=== PATIENT | female | born 1990 | race Hispanic/Latino ===

== ENCOUNTER 2022-08-27 02:05 | Inpatient (IN) | payer SELFPAY ==
[~2022-08-27] VITALS: Ht 162.6 cm; Wt 91.6 kg
[2022-08-27] MEDS ORDERED: ONDANSETRON HCL INJ 2MG/ML 2ML 2 MG/ML VIAL IV STA (02:25)
[2022-08-27] MEDS ORDERED: SODIUM CHLORIDE 0.9% 1000ML 1,000 ML ONE (02:27)
[2022-08-27] MEDS ORDERED: ONDANSETRON HCL INJ 2MG/ML 2ML 2 MG/ML VIAL ONE (02:28)
[2022-08-27 02:29] LABS: BASOPHILS # (AUTO) 0.1 (0.0-0.1); BASOPHILS % 0.9 % (0.0-1.0); EOSINOPHILS # (AUTO) 0.2 (0.0-0.4); EOSINOPHILS % 2.4 % (0.0-6.0); HEMATOCRIT 40.3 % (34.2-44.1); HEMOGLOBIN 13.4 g/dL (12.0-16.0); LYMPHOCYTES % 24.4 % (18.0-39.1); MEAN CORPUSCULAR HEMOGLOBIN 29.3 pg (28-32); MEAN CORPUSCULAR HGB CONC 33.3 g/dL (31-35); MEAN CORPUSCULAR VOLUME 88.2 fL (81-99); MONOCYTES # (AUTO) 0.5 (0.2-0.8); MONOCYTES % 5.6 % (4.4-11.3); NEUTROPHILS # (AUTO) 5.3 (2.1-6.9); NEUTROPHILS % 66.6 % (38.7-80.0); PLATELET COUNT 283 x10e3/uL (140-360); RED BLOOD COUNT 4.57 x10e6/uL (3.6-5.1); RED CELL DISTRIBUTION WIDTH 14.8 % (11.7-14.4)
[2022-08-27] MEDS ORDERED: SODIUM CHLORIDE 0.9% 1000ML 1,000 ML IV ONE (02:30)
[2022-08-27] MEDS ORDERED: FAMOTIDINE 20 MG/2 ML VIAL IV STA (02:39)
[2022-08-27 02:44] LABS: CLARITY,URINE CLEAR (CLEAR); COLOR,URINE AMBER (YELLOW); KETONES,URINE TRACE (NEGATIVE); LEUKOCYTE ESTERASE ,URINE NEGATIVE (NEGATIVE); NITRITE,URINE NEGATIVE (NEGATIVE); PROTEIN,URINE DIPSTICK NEGATIVE (NEGATIVE)
[2022-08-27 02:48] LABS: ANION GAP 13.9 mmol/L (8-16); CALCIUM 9.4 mg/dL (8.4-10.2); CREATININE, SERUM 0.79 mg/dL (0.57-1.11); POTASSIUM 3.9 mmol/L (3.5-5.1)
[2022-08-27 02:49] LABS: WBC,URINE (MAN) 0-5 /HPF (0-5)
[2022-08-27 02:50] LABS: AMORPHOUS SEDIMENT,URINE FEW (FEW); BACTERIA,URINE FEW /HPF; EPITHELIAL CELLS,URINE FEW /LPF; RBC,URINE 0-5 /HPF (0-5)
[2022-08-27] MEDS ORDERED: SODIUM CHLORIDE 0.9% 1000ML 1,000 ML IV SCH (04:00)
[2022-08-27] MEDS: Morphine 4mg INJECTION 4 MG/ML INJ IV PRN (04:34)
[2022-08-27] MEDS ORDERED: BUPROPION XL300 MG PO (05:14)
[2022-08-27] MEDS ORDERED: FLUOXETINE HCL40 MG PO (05:14)
[2022-08-27 05:15] VITALS: BP 115/85; PULSE 92; RESP 18; TEMP 98.2; O2SAT 100
[2022-08-27 08:33] VITALS: BP 104/71; PULSE 90; RESP 17; TEMP 98.4; O2SAT 98
[2022-08-27] MEDS ORDERED: IOPAMIDOL 370 MG/ML 100 ML INFUS..BTL INJ ONE (08:44)
[2022-08-27] MEDS ORDERED: ALBUTEROL/IPRATROPIUM 3 ML NEB NEB PRN (09:00)
[2022-08-27] MEDS ORDERED: POTASSIUM CHLORIDE 20 MEQ TAB CR PO PRN (09:00)
[2022-08-27] MEDS ORDERED: MELATONIN 5 MG TABLET PO PRN (09:00)
[2022-08-27] MEDS ORDERED: BENZONATATE 100 MG CAP PO PRN (09:00)
[2022-08-27] MEDS ORDERED: LIDOCAINE 4% PATCH TP PRN (09:00)
[2022-08-27] MEDS ORDERED: DOCUSATE SODIUM 100 MG CAP PO PRN (09:00)
[2022-08-27] MEDS ORDERED: HYDRALAZINE HCL 20 MG/ML VIAL IV PRN (09:00)
[2022-08-27] MEDS ORDERED: DEXTROSE 50% SYRINGE 50 ML IV PRN (09:00)
[2022-08-27] MEDS ORDERED: SIMETHICONE 80 MG CHEW PO PRN (09:00)
[2022-08-27] MEDS ORDERED: ACETAMINOPHEN 325 MG TAB PO PRN (09:00)
[2022-08-27] MEDS ORDERED: DIPHENHYDRAMINE HCL 25 MG CAP PO PRN (09:00)
[2022-08-27] MEDS ORDERED: GADOBENATE DIMEGLUMINE 1 ML IV ONE (09:41)
[2022-08-27] MEDS: DEXTROSE 5%/0.9% SOD CHL 1,000 ML IV SCH ×2 (09:48→21:23)
[2022-08-27 12:10] VITALS: BP 104/71; PULSE 90; RESP 17; TEMP 98.4; O2SAT 98
[2022-08-27 16:40] VITALS: BP 108/69; PULSE 74; RESP 21; TEMP 98.6; O2SAT 100
[2022-08-27] MEDS: ENOXAPARIN SOD INJ 40 MG/0.4 ML SYR SC SCH (16:45)
[2022-08-27 21:00] VITALS: BP 112/69; PULSE 81; RESP 18; TEMP 98.1; O2SAT 100
[2022-08-27 21:13] VITALS: BP 112/69; PULSE 81; RESP 18; TEMP 98.1; O2SAT 100
[2022-08-28] VITALS (8 sets, daily range): BP systolic 104–121; BP diastolic 69–84; PULSE 76–88; RESP 15–20; TEMP 97.8–99.2; O2SAT 99–100
[2022-08-28 05:16] LABS: BASOPHILS % 0.9 % (0.0-1.0); EOSINOPHILS # (AUTO) 0.2 (0.0-0.4); EOSINOPHILS % 4.1 % (0.0-6.0); HEMATOCRIT 32.4 % (34.2-44.1); HEMOGLOBIN 10.9 g/dL (12.0-16.0); LYMPHOCYTES # (AUTO) 1.6 (1.0-3.2); LYMPHOCYTES % 37.1 % (18.0-39.1); MEAN CORPUSCULAR HEMOGLOBIN 29.6 pg (28-32); MEAN CORPUSCULAR HGB CONC 33.6 g/dL (31-35); MONOCYTES # (AUTO) 0.3 (0.2-0.8); MONOCYTES % 5.7 % (4.4-11.3); NEUTROPHILS # (AUTO) 2.3 (2.1-6.9); PLATELET COUNT 216 x10e3/uL (140-360); RED BLOOD COUNT 3.68 x10e6/uL (3.6-5.1)
[2022-08-28 05:57] LABS: ALANINE AMINOTRANSFERASE 453 IU/L (0-55); ALBUMIN 2.9 g/dL (3.5-5.0); ALKALINE PHOSPHATASE 242 IU/L (40-150); ANION GAP 9.9 mmol/L (8-16); BLOOD UREA NITROGEN < 5 mg/dL (7-26); CALCIUM 8.2 mg/dL (8.4-10.2); CARBON DIOXIDE 20 mmol/L (22-29); CHLORIDE 112 mmol/L (98-107); GLUCOSE 96 mg/dL (74-118); POTASSIUM 3.9 mmol/L (3.5-5.1); SODIUM 138 mmol/L (136-145)
[2022-08-28 06:00] LABS: BUN/CREATININE RATIO 7 (6-25)
[2022-08-28] MEDS: DEXTROSE 5%/0.9% SOD CHL 1,000 ML IV SCH ×2 (06:23→16:24)
[2022-08-28] MEDS: PANTOPRAZOLE SOD 40 MG TABEC PO SCH (07:12)
[2022-08-28] MEDS: FLUOXETINE HCL 20 MG CAP PO SCH (07:45)
[2022-08-28] MEDS ORDERED: NON-FORMULARY MEDICATION (Bupropion Hcl (Bupropion Xl) 300 MG) PO SCH (09:00)
[2022-08-28] MEDS: ENOXAPARIN SOD INJ 40 MG/0.4 ML SYR SC SCH (16:24)
[2022-08-29] VITALS (9 sets, daily range): BP systolic 97–118; BP diastolic 67–83; PULSE 72–78; RESP 17–20; TEMP 97–98.6; O2SAT 98–99
[2022-08-29] MEDS: DEXTROSE 5%/0.9% SOD CHL 1,000 ML IV SCH ×2 (01:06→12:27)
[2022-08-29 07:21] LABS: BASOPHILS # (AUTO) 0.1 (0.0-0.1); BASOPHILS % 1.1 % (0.0-1.0); EOSINOPHILS # (AUTO) 0.1 (0.0-0.4); EOSINOPHILS % 2.4 % (0.0-6.0); HEMATOCRIT 33.9 % (34.2-44.1); HEMOGLOBIN 11.2 g/dL (12.0-16.0); LYMPHOCYTES # (AUTO) 1.9 (1.0-3.2); LYMPHOCYTES % 34.8 % (18.0-39.1); MEAN CORPUSCULAR HEMOGLOBIN 29.6 pg (28-32); MEAN CORPUSCULAR VOLUME 89.4 fL (81-99); MONOCYTES # (AUTO) 0.4 (0.2-0.8); MONOCYTES % 8.2 % (4.4-11.3); NEUTROPHILS # (AUTO) 2.8 (2.1-6.9); NEUTROPHILS % 53.1 % (38.7-80.0); PLATELET COUNT 223 x10e3/uL (140-360); RED BLOOD COUNT 3.79 x10e6/uL (3.6-5.1); RED CELL DISTRIBUTION WIDTH 15.4 % (11.7-14.4)
[2022-08-29] MEDS: PANTOPRAZOLE SOD 40 MG TABEC PO SCH (07:30)
[2022-08-29 07:45] LABS: ALBUMIN 3.1 g/dL (3.5-5.0); ALBUMIN/GLOBULIN RATIO 0.9 (0.8-2.0); ANION GAP 9.9 mmol/L (8-16); CALCIUM 8.6 mg/dL (8.4-10.2); CREATININE, SERUM 0.67 mg/dL (0.57-1.11); POTASSIUM 3.9 mmol/L (3.5-5.1)
[2022-08-29] MEDS ORDERED: BUPIVACAINE 0.5%/EPI 30 ML SDV INJ ONE (08:06)
[2022-08-29] MEDS: FLUOXETINE HCL 20 MG CAP PO SCH (09:00)
[2022-08-29] MEDS ORDERED: MEPERIDINE HCL INJ 25 MG/ML VIAL IV ONE (09:53)
[2022-08-29] MEDS ORDERED: FENTANYL CITRATE/PF 100MCG/2 ML INJ ONE ×2 (10:01→13:26)
[2022-08-29] MEDS ORDERED: FENTANYL CITRATE/PF 100MCG/2 ML INJ IV ONE (10:02)
[2022-08-29] MEDS: Morphine 4mg INJECTION 4 MG/ML INJ IV PRN ×3 (10:50→21:03)
[2022-08-29] MEDS: ONDANSETRON HCL INJ 2MG/ML 2ML 2 MG/ML VIAL IV PRN ×3 (10:50→21:02)
[2022-08-29] MEDS ORDERED: MIDAZOLAM HCL 2 MG/2 ML VIAL ONE (13:26)
[2022-08-29] MEDS: ENOXAPARIN SOD INJ 40 MG/0.4 ML SYR SC SCH (17:37)
[2022-08-30 01:37] VITALS: BP 108/66; PULSE 79; RESP 19; TEMP 97.4; O2SAT 98
[2022-08-30] MEDS: ONDANSETRON HCL INJ 2MG/ML 2ML 2 MG/ML VIAL IV PRN ×3 (03:14→13:48)
[2022-08-30] MEDS: Morphine 4mg INJECTION 4 MG/ML INJ IV PRN ×3 (03:14→13:49)
[2022-08-30 05:24] VITALS: BP 98/62; PULSE 85; RESP 18; TEMP 97; O2SAT 98
[2022-08-30 05:32] LABS: ALANINE AMINOTRANSFERASE 252 IU/L (0-55); ALBUMIN 2.9 g/dL (3.5-5.0); ALBUMIN/GLOBULIN RATIO 0.9 (0.8-2.0); ALKALINE PHOSPHATASE 195 IU/L (40-150); ANION GAP 9.6 mmol/L (8-16); CALCIUM 8.3 mg/dL (8.4-10.2); CARBON DIOXIDE 22 mmol/L (22-29); CHLORIDE 110 mmol/L (98-107); CREATININE, SERUM 0.65 mg/dL (0.57-1.11); GLUCOSE 107 mg/dL (74-118); POTASSIUM 3.6 mmol/L (3.5-5.1); SODIUM 138 mmol/L (136-145)
[2022-08-30 06:05] LABS: BLOOD UREA NITROGEN < 5 mg/dL (7-26)
[2022-08-30 06:06] LABS: BUN/CREATININE RATIO 8 (6-25)
[2022-08-30 09:00] VITALS: BP 98/62; PULSE 85; RESP 18; TEMP 97; O2SAT 98
[2022-08-30] MEDS: FLUOXETINE HCL 20 MG CAP PO SCH (09:29)
[2022-08-30] MEDS: PANTOPRAZOLE SOD 40 MG TABEC PO SCH (09:30)
[2022-08-30 10:01] VITALS: BP 102/65; PULSE 81; RESP 17; TEMP 98.1; O2SAT 99
== END 2022-08-30 14:55 | disposition home or self-care (01) | DRG 419 ==
LOC: ER 02:12 → ERHOLD 03:58 → MED/SURG 04:42 → OBSVTOIN 08-28 08:01
PROVIDERS: ADMIT Internal Medicine; ATTEND Internal Medicine
PROC: 0FT44ZZ Resection of Gallbladder, Percutaneous Endoscopic Approach (ICD-10-PCS; principal; 2022-08-29 08:41)
DX: K80.00 Calculus of gallbladder with acute cholecystitis without obstruction (principal); F32.A Depression, unspecified; F41.9 Anxiety disorder, unspecified; E66.01 Morbid (severe) obesity due to excess calories; Z68.34 Body mass index [BMI] 34.0-34.9, adult
CPT/HCPCS: 36415; 74177; 74183; 76705; 80053; 81001; 81025; 83690; 85025; 88304; 93005; 99284; G0378; J1650; J2175; J2250; J2270; J2405; J2543; J7030; J7042; Q9967